=== PATIENT | female | born 1990 | race Caucasian/White ===

== ENCOUNTER 2017-02-26 20:01 | Emergency (ER) | payer SELFPAY ==
[2016-07-16 19:30] VITALS: Ht 160 cm; Wt 88.5 kg
[~2017-02-26] VITALS: Ht 160 cm; Wt 88.5 kg
[~2017-02-26 20:01] MED LIST: ACET-1718 PO; ACET-1966 PO; ALB18R INH; ALBU8.5H IH; AMOX-362 PO; AMOX500C7 PO; AZIT-9 PO; CEPH500T7 PO; CYCL10TA29 PO; HYDR-3250 PO; IBUP800T37 PO; KET10 PO; LOR5/325 PO; PREN-127 PO
--- NOTE | 2017-02-26 20:05 | ER Report ---
History and Physical Time Seen By MD: 20:05 HPI/ROS CHIEF COMPLAINT: He for, ill HISTORY OF PRESENT ILLNESS: 26-year-old. Mom presents ambulatory to the ER with her ill 8-year-old son with 2 days of symptoms. She notes some chest tightness and chest pain with coughing. She also has an eight-month old who is not sick present. Mom notes no productive cough, no nausea or vomiting. She has no history of asthma. Patient denies ear pain or sinus drainage. Patient does note a moderately sore throat, increased with swallowing. REVIEW OF SYSTEMS: Respiratory: As above Cardiovascular: No chest pain, no palpitations. Gastrointestinal: No vomiting, no abdominal pain. Musculoskeletal: No back pain. Allergies: Coded Allergies: No Known Drug Allergies (Verified , 04/22/16) Home Meds Active Scripts Promethazine HCl/Codeine (Prometh-Codein 6.25-10 mg/5 ml) 5 Ml Syrup, 1-2 TSP PO Q4H Y for cough and body aches suppressi, #120 Prov:DANGELO ZAMARRIPA DO 02/26/17 Oseltamivir Phosphate (TAMIFLU) 75 Mg Cap, 75 MG FT BID for influenza treatment , #10 CAP Prov:DANGELO ZAMARRIPA DO 02/26/17 Cephalexin 500 Mg Tab (KEFLEX 500 MG TAB) 500 Mg Tablet, 500 MG PO Q6H, #28 TAB Prov:RENÉE CROSS MD 07/17/16 Ibuprofen (IBUPROFEN) 800 Mg Tablet, 1 TAB PO Q8H, #30 TAB 0 Refills Take with food every 8 hours. Prov:RENÉE CROSS MD 07/17/16 Acetaminophen With Codeine # 3 (ACETAMINOPHEN-COD #3 TABLET) 1 Each Tablet, 1-2 EACH PO Q4H Y for PAIN, #30 TAB 0 Refills TAKE 1-2 TABLETS NEEDED FOR PAIN - NO CLOSER THAN EVERY 4 HOURS Prov:RENÉE CROSS MD 07/17/16 Reported Medications Acetaminophen (TYLENOL) 325 Mg Tablet, 325 MG PO PRN for PAIN, TAB 06/18/16 Albuterol Sulfate (VENTOLIN HFA) 18 Gm Inh, 1-2 PUFF INH 3-4XD, INH 04/22/16 Hx Smoking: Yes Smoking Status: Former Smoker Exposure to Second Hand Smoke?: Yes Hx Substance Use Disorder: Yes Hx Alcohol Use: Yes Constitutional Vital Sign - Last 24 Hours 02/26/17 02/26/17 20:41 22:12 Temp 98.7 Pulse 115 85 Resp 16 16 B/P (MAP) 125/89 138/85 (102) Pulse Ox 98 95 O2 Delivery Room Air Physical Exam Vital signs stable, afebrile, pulse ox normal General Appearance: The patient is alert, has no immediate need for airway protection and no current signs of toxicity. Mild distress, tired appearing HEENT: Pupils equal and round no injection. TMs normal, oropharynx with mild erythema, no exudate or petechiae Respiratory: Chest is non tender, lungs are clear to auscultation. No wheezing or rails Cardiac: regular rate and rhythm Gastrointestinal: Abdomen is soft and non tender, no masses, bowel sounds normal. Musculoskeletal: Neck: Neck is supple and non tender. No lymphadenopathy, no meningismus Extremities have full range of motion and are non tender. Skin: No rashes or lesions. DIFFERENTIAL DIAGNOSIS: After history and physical exam differential diagnosis was considered for adult fever including but not limited to viral syndromes including influenza, bronchitis, sinusitis urinary tract infection, pneumonia and sepsis. Medical Decision Making Data Points Laboratory Hematology Test 02/26/17 20:55 Influenza Virus Type A (PCR) Positive (NEGATIVE) Influenza Virus Type B (PCR) Negative (NEGATIVE) Group A Streptococcus Screen Negative (NEGATIVE) Chemistry Test 02/26/17 20:55 Influenza Virus Type A (PCR) Positive (NEGATIVE) Influenza Virus Type B (PCR) Negative (NEGATIVE) Group A Streptococcus Screen Negative (NEGATIVE) Microbiology Microbiology Date/Time Source Procedure Growth Status 02/26/17 20:55 Throat Group A Streptococcus Screen ([facility]) - Preliminary NORMAL RESPIRATORY RYAN PRESENT, CUL... Resulted ED Course/Re-evaluation ED Course Patient was admitted to an examination room. H&P was done. The differential diagnoses was considered. On conical examination, patient appears ill but not toxic. Her vital signs are stable. Her pharynx is moderate erythema without exudate. A rapid strep is performed as well as a rapid influenza. Patient's medicated with ibuprofen for pain relief. The rapid strep test is negative. Influenza is positive for flu B. Patient's been given a prescription for Tamiflu 75 mg. Her 1st doses administered here. A prescription for her 8-month -old for Tamiflu prophylaxis is provided. Mom's advised ibuprofen and Tylenol. Patient's given a prescription for Phenergan with codeine syrup for symptomatically relief. Decision to Disposition Date: Feb 26, 2017 Decision to Disposition Time: 21:45 Depart Departure Latest Vital Signs Vital Signs Date Time Temp Pulse Resp B/P (MAP) Pulse Ox O2 Delivery O2 Flow Rate FiO2 02/26/17 22:12 85 16 138/85 (102) 95 Room Air 02/26/17 20:41 98.7 Impression: Primary Impression: Influenza A Additional Impressions: Fever Pleurisy Condition: Improved Disposition: HOME OR SELF-CARE Referrals: RENÉE CROSS MD (PCP) New Scripts Promethazine HCl/Codeine (Prometh-Codein 6.25-10 mg/5 ml) 5 Ml Syrup 1-2 TSP PO Q4H Y for cough and body aches suppressi, #120 Prov: DANGELO ZAMARRIPA DO 02/26/17 Oseltamivir Phosphate (TAMIFLU) 75 Mg Cap 75 MG FT BID for influenza treatment, #10 CAP Prov: DANGELO ZAMARRIPA DO 02/26/17 Patient Instructions: Influenza (ED) Additional Instructions: Alternate ibuprofen with Tylenol to control fevers and body aches Drink plenty of fluids Follow-up with primary care if unimproved in 3-5 days Problem Qualifiers Additional Impressions: Fever Fever type: unspecified Qualified Codes: R50.9 - Fever, unspecified DANGELO ZAMARRIPA DO Feb 26, 2017 20:05
[2017-02-26] MEDS ORDERED: ACETAMINOPHEN 325 MG TAB PO ONE (20:50)
[2017-02-26] MEDS ORDERED: IBUPROFEN 600 MG TAB PO ONE (20:50)
[2017-02-26] MEDS ORDERED: PROM5SYR PO (21:50)
[2017-02-26] MEDS ORDERED: OSE75 FT (21:50)
[2017-02-26] MEDS ORDERED: OSELTAMIVIR PHOS 75 MG CAP PO ONE (21:55)
[2017-02-26] MEDS ORDERED: PROMETH/COD SYRP 6.25-10MG/5ML PO ONE (21:55)
[2017-02-26 22:12] VITALS: BP 138/85
== END 2017-02-26 22:32 | disposition home or self-care (01) ==
LOC: ER 20:44
DX: J09.X2 Influenza due to identified novel influenza A virus with other respiratory manifestations (principal)
CPT/HCPCS: 87081; 87502; 87880; 99282